=== PATIENT | male | born 1985 | race Caucasian/White ===

== ENCOUNTER 2016-05-13 11:37 | Emergency (ER) | payer OTHER ==
[~2016-05-13] VITALS: Ht 175.3 cm; Wt 105.3 kg
[2016-05-13 12:41] LABS: HEMATOCRIT 43.3 % (38.0-50.0); MCH 31.9 PG (29.0-34.0); MCHC 36.5 G/DL (30.0-36.0); MCV 87.5 FL (86-99); MEAN PLAT.VOLUME 9.3 uM^3 (9.0-12.4); PLATELET COUNT 132 K/uL (156-360); RBC DIS.WIDTH-CV 12.1 % (11.8-14.6); RBC DIS.WIDTH-SD 37.9 % (39-53); RED BLOOD COUNT 4.95 M/uL (4.00-5.50); WHITE BLOOD COUNT 7.3 K/uL (4.1-10.2)
[2016-05-13 13:03] LABS: CHLORIDE 108 mEq/L (99-109); POTASSIUM 4.8 mEq/L (3.7-5.4); SODIUM 139 mEq/L (136-147)
[2016-05-13 13:05] LABS: GLUCOSE 89 mg/dL (70-99)
[2016-05-13 13:06] LABS: ANION GAP 11 MEQ/L (2-14)
[2016-05-13 13:08] LABS: TROP-I INTERPRETATION NEGATIVE; TROPONIN-I < 0.01 ng/mL (0.0-0.30)
[2016-05-13 13:09] LABS: GFR ESTIMATE (CALCULATED) > 59 mL/min/
[2016-05-13 13:10] LABS: UREA NITROGEN (BUN) 15 mg/dL (9-23)
[2016-05-13 15:01] LABS: TOTAL BILIRUBIN 0.8 mg/dL (0.0-1.0)
[2016-05-13 15:02] LABS: ALKALINE PHOSPHATASE 57 IU/L (3-129)
[2016-05-13 15:05] LABS: DIRECT BILIRUBIN 0.2 mg/dL (0.0-0.3)
[2016-05-13 15:06] LABS: LIPASE 39 U/L (1.0-51.0)
[2016-05-13 15:28] LABS: TROP-I INTERPRETATION NEGATIVE; TROPONIN-I < 0.01 ng/mL (0.0-0.30)
[2016-05-13 16:05] VITALS: BP 135/84
== END 2016-05-13 16:07 | disposition home or self-care (01) ==
LOC: RME 11:37 → EME 11:37 → RME 16:07
PROVIDERS: Physician Assistant
DX: R07.9 Chest pain, unspecified (principal); F17.210 Nicotine dependence, cigarettes, uncomplicated
CPT/HCPCS: 71020; 80048; 80076; 83690; 84484; 85027; 93005; 99281; 99284

== ENCOUNTER 2017-10-10 15:40 | Emergency (ER) | payer OTHER ==
[~2017-10-10] VITALS: Ht 175.3 cm; Wt 106.8 kg
[2017-10-10 17:09] LABS: HEMATOCRIT 44.7 % (38.0-50.0); HEMOGLOBIN 16.4 G/DL (12.5-16.6); MCH 32.8 PG (29.0-34.0); MCHC 36.7 G/DL (30.0-36.0); MCV 89.4 FL (86-99); PLATELET COUNT 132 K/uL (156-360); RBC DIS.WIDTH-SD 39.5 % (39-53); WHITE BLOOD COUNT 10.7 K/uL (4.1-10.2)
[2017-10-10 17:21] LABS: CHLORIDE 104 mEq/L (99-109); POTASSIUM 4.1 mEq/L (3.7-5.4); SODIUM 139 mEq/L (136-147)
[2017-10-10 17:23] LABS: GLUCOSE 105 mg/dL (70-99)
[2017-10-10 17:24] LABS: APPEARANCE CLEAR ((CLEAR)); BILIRUBIN NEGATIVE; BLOOD NEGATIVE; COLOR COLORLESS ((YELLOW)); GLUCOSE (STRIP) NEGATIVE; KETONES NEGATIVE; LEUKOCYTES NEGATIVE; NITRITE NEGATIVE; PROTEIN (STRIP) NEGATIVE; SPECIFIC GRAVITY 1.003 (1.000-1.030); UROBILINOGEN 0.2 MG/DL (0.2-1.0)
[2017-10-10 17:27] LABS: CREATININE 1.1 mg/dL (0.6-1.3); GFR ESTIMATE (CALCULATED) > 59 mL/min/ (58.99-99999); UREA NITROGEN (BUN) 14 mg/dL (9-23)
[2017-10-10 19:50] VITALS: BP 123/86
== END 2017-10-10 19:50 | disposition home or self-care (01) ==
LOC: EME 15:40
PROVIDERS: Physician Assistant
DX: R07.89 Other chest pain (principal); R42 Dizziness and giddiness; Z72.0 Tobacco use
CPT/HCPCS: 71046; 80048; 81003; 85027; 93005; 99281; 99285; J7030